=== PATIENT | female | born 1980 | race Caucasian/White ===

== ENCOUNTER → 2019-07-06 13:09 | Outpatient (CLI) | payer MEDICAID, SELFPAY ==
[2019-02-16 15:47] VITALS: BMI 24.6
== END ==
PROVIDERS: PCP Nurse Practitioner Family
DX: R68.89 Other general symptoms and signs (principal); R09.89 Other specified symptoms and signs involving the circulatory and respiratory systems
CPT/HCPCS: 87635; 87804; 94799; C9803; G2023; U0004

== ENCOUNTER 2020-03-24 17:35 | Emergency (ER) | payer MEDICAID, SELFPAY ==
[2019-02-16 15:47] VITALS: BMI 24.6
[2020-03-24 17:36] VITALS: BP 150/75; PULSE 93; RESP 15; TEMP 36.5; O2SAT 100; BMI 24.0
[2020-03-24] MEDS: Acetaminophen 500 MG Tablet 1000 MG PO (18:21)
[2020-03-24 18:24] LABS: Mucous, Urine 0 SEEN /hpf (<or=2+)
[2020-03-24 18:28] LABS: Color, Urine Yellow (Yellow); Glucose, Dipstick Normal (Normal); Ketone-Dipstick 5 mg/dl (Negative); Leukocyte Esterase-Dipstick 100 /ul (Negative); Nitrite-Dipstick Positive (Negative); Occult Blood-Urine 50 /ul (Negative); Protein-Dipstick 15 mg/dl (Negative); Specific Gravity, Urine 1.025 (1.002-1.030); Urine Bilirubin Dipstick Negative (Negative); Urine Clarity Cloudy (Clear); Urine Urobilinogen Normal (Normal)
[2020-03-24 18:29] LABS: Internal QC Validated? YES +Cl - CLEAR BKGD
[2020-03-24 18:30] LABS: Pregnancy, Urine Negative Negative
[2020-03-24 18:36] LABS: Amorphous Sediment 1+ URATE; Bacteria 3+ /hpf (None Seen); Red Blood Cells-Urine 0-5 SEEN /hpf (0-5); Squamous Epithelial Cells - UA 0-5 SEEN /hpf (5-10); White Blood Cells 5-10 SEEN /hpf (0-5)
--- NOTE | 2020-03-24 19:14 | ED.DCSUM_ITS ---
- ER Visit Summary Date of Service: 03/24/20 Chief Complaint: Fever History of Present Illness: The patient is a 39 F who sees Yadiel Machado. She reports that she has a fever that began 2 days ago. Is been as high as 101.3 degrees. She said chills cold sweats, myalgias. She reports that she does have mild shortness of breath. She denies cough. She has a sore throat and 6 out of 10 severity. Patient also complains of dysuria and frequency this been present for the past 4 days. She reports a headache that is 8 out of 10 severity. Is a sharp frontal pain she has a history of similar headaches. Patient reports that she has had exposure to 3 different cases of Covid at work. She denies any change in her sense of smell or taste. Physical Examination: Vitals: Stable. Afebrile. General: Well-nourished and well-developed. Head: Normocephalic atraumatic. Neck: Supple, no lymphadenopathy. No JVD. Nontender. Cardiovascular: Regular rate and rhythm. No murmurs. Respiratory: No respiratory distress. Clear to auscultation bilaterally. Abdominal: Soft, nontender, nondistended, normal bowel sounds. No guarding, rebound, or peritoneal signs. Back: Nontender. Extremities: Nontender, no edema. Skin: Normal color, no rash. Neurologic: Alert and oriented ?3. Cranial nerves II through XII are intact. Normal strength and sensation. Psych: Normal affect. Test Results: COVID-19 rapid antigen is negative. Urinalysis shows leukocytes, nitrites, 5-10 white blood cells, 3+ bacteria. test was negative. Emergency Department Course and Treatment: Patient was treated with Tylenol and Cipro p.o. She is resting comfortably. Treatment Plan: I do not think the patient's urine is the source of her fever. She will be discharged with Cipro. However, given her exposure to Covid I suspect this false negative test and the patient needs to quarantine while she is still ill. Follow-up with her primary care physician in 10 to 14 days if not improving. Return to the emergency department for any worsening symptoms. Disposition: To home in improved and stable condition. Impression: 1. UTI. 2. Fever. 3. COVID-19 exposure. This note was generated with [employer] software. It may contain incorrect words, spelling, and punctuation that were not noted in review of the chart prior to signing ED Disposition - Plan for ED Patient: Instructions: ED Bladder Infection, Female (Adult) Prescriptions: Ciprofloxacin [Cipro] 500 mg PO BID #14 tablet Referrals: Jesus Bell MACHINE S[employer]K SCREEN PRINTER, MACHINE [employer] SCREEN PRINTER-[facility] [Primary Care Provider] - 10-14 Days if not better
[2020-03-24] MEDS: Ciprofloxacin 500 MG Tablet PO (19:25)
== END 2020-03-24 19:33 | disposition home or self-care (01) ==
LOC: ED 18:38
PROVIDERS: Emergency Provider Emergency Medicine; PCP Nurse Practitioner Family
DX: N39.0 Urinary tract infection, site not specified (principal); J02.9 Acute pharyngitis, unspecified; R06.00 Dyspnea, unspecified; Z20.822 Contact with and (suspected) exposure to COVID-19; E03.9 Hypothyroidism, unspecified; F32.9 Major depressive disorder, single episode, unspecified; F41.9 Anxiety disorder, unspecified; Z79.899 Other long term (current) drug therapy; F17.200 Nicotine dependence, unspecified, uncomplicated
CPT/HCPCS: 81001; 81025; 87426; 99284

== ENCOUNTER 2020-10-27 21:20 | Emergency (ER) | payer MEDICAID, SELFPAY ==
[2020-10-27 21:21] VITALS: BP 127/50; PULSE 96; RESP 18; TEMP 36.4; O2SAT 97; BMI 26.6
--- NOTE | 2020-10-27 22:40 | EX.ED.VIS.HA ---
HPI History of Present Illness Chief Complaint: Headache Narrative Narrative: 39-year-old female presenting with headache. She states he has a history of migraine headaches. This does feel similar. Patient states that she was in the ER a few days ago and states that she was treated for a sinusitis/URI. She is put on steroids. She states her head was not bothering her at this point. Now she believes she developed a migraine. She has no nasal drainage. She has no fever or chills. No cough, body aches, change in taste or smell. [facility] Medical History Alcohol abuse Drug abuse Heart murmur Hyperthyroidism Migraines Home Medications buspirone 10 mg tablet 10 mg PO BID 02/16/19 [History Last Taken Unknown] clonazepam 1 mg tablet 1 mg PO BID 02/16/19 [History Last Taken Unknown] desvenlafaxine succinate 50 mg tablet,extended release 24 hr 50 mg PO DAILY 02/16/19 [History Last Taken Unknown] naltrexone 50 mg tablet 50 mg PO BID tab 02/16/19 [History Last Taken Unknown] ciprofloxacin HCl 500 mg PO BID #14 tab 03/24/20 [Rx Last Taken Unknown] Allergy/AdvReac Type Severity Reaction Status Date / Time doxycycline Allergy Vomiting Verified 10/27/20 21:23 risperidone AdvReac Intermediate dizziness, Verified 10/27/20 21:23 sedated prochlorperazine AdvReac Other Verified 10/27/20 23:35 [From Compazine] Family History Father , lung and liver cancer Alcoholism Cancer Drug abuse Mother Alcoholism Drug addiction Grandmother Diabetes Heart failure CVA (cerebral vascular accident) Arthritis Surgical History History of history of nose reconstruction History of tonsillectomy History of tubal ligation Social History Smoking Status: Current every day smoker tobacco type: cigarettes alcohol intake: former substance use type: former substance user ROS ROS ED Constitutional Constitutional ED: Denies chills, fever(s) or sweats Eyes Eyes: Reports other Details: Photophobia and phonophobia ; Denies blurry vision or diplopia ENT ENT ED: Denies ear pain or rhinorrhea Cardiovascular Cardiovascular: Denies chest pain or palpitations Respiratory/Chest Respiratory/Chest: Denies cough, dyspnea or sputum Gastrointestinal Gastrointestinal: Reports nausea; Denies abdominal pain or vomiting Genitourinary Genitourinary ED: Denies dysuria or hematuria Musculoskeletal Musculoskeletal: Denies arthralgias, back pain, myalgias or neck pain Integumentary Denies Abrasions or rash Neurologic Neurologic: Reports headache(s); Denies paresthesias EXAM Physical Exam Const Vital Signs: 10/27/20 21:21 10/27/20 23:53 Temperature 97.6 F L Temperature Source Temporal Pulse Rate 96 Respiratory Rate 18 16 Blood Pressure 127/50 H Blood Pressure Mean 75 Pulse Ox 97 Oxygen Delivery Method Room Air Positive well nourished General Appearance ED: NAD HEENT Reports normocephalic and moist mucous membranes atraumatic Eyes PERRL and EOMs intact bilaterally Resp normal respiratory effort and clear to auscultation bilaterally Cardio regular rate and regular rhythm Neuro oriented x3, CN's II-XII intact bilaterally and no sensory deficits noted Sensorium / Orientation: awake and alert Motor Exam: strength 5/5 throughout Psych mental status grossly normal Skin Lesions: no lesions Rashes: no rashes MDM MDM MDM Narrative Medical decision making narrative: Patient presenting for treatment of migraine headache. She is given Compazine, Benadryl, Toradol. I do not believe she needs imaging of her brain given her history of migraine. Patient reported symptoms of anxiety after getting treated. When I went to the room to evaluate her she had pulled out her IV and was gone. Impression: 1. Headache Discharge Plan Triage Chief Complaint: Headache ED Provider: Rafael Montoya Dx/Rx/DC Orders Instructions: ED Headache Unspecified Prescriptions: No Action desvenlafaxine succinate [Pristiq] 50 mg tablet extended release 24 hr 50 mg PO DAILY RF: 0 naltrexone 50 mg tablet 50 mg PO BID RF: 0 clonazepam [Klonopin] 1 mg tablet 1 mg PO BID RF: 0 buspirone 10 mg tablet 10 mg PO BID RF: 0 ciprofloxacin HCl 500 MG tablet 500 mg PO BID Qty: 14 RF: 0 Primary Care Provider: Jesus Bell NP Referrals: Jesus Bell INSTRUCTIONAL SYSTEMS SPECIALIST, INSTRUCTIONAL SYSTEMS SPECIALIST-C [Primary Care Provider] - Disposition Disposition: Elopement Discharge Date/Time: 10/28/20 00:17
[2020-10-27] MEDS: Ketorolac 15 MG/ML Vial IV (23:01)
[2020-10-27] MEDS: proCHLORPERazine 10 MG/2 ML Vial IV (23:01)
[2020-10-27] MEDS: DiphenhydrAMINE 50 MG/ML Syringe 25 MG IV (23:01)
[2020-10-27 23:53] VITALS: RESP 16
--- NOTE | 2020-10-27 23:53 | ED.RN ---
DR ZAIDI WENT IN TO RE-EVAL PT AND PT HAD LEFT. MIKE GALVIN HAD REMOVED PT IV PRIOR TO HER LEAVING.
== END 2020-10-28 00:17 | disposition left against medical advice (07) ==
LOC: ED 10-28 00:09
PROVIDERS: Emergency Provider Student in an Organized Health Care Education/Training Program; PCP Nurse Practitioner Family
DX: G43.909 Migraine, unspecified, not intractable, without status migrainosus (principal); E05.90 Thyrotoxicosis, unspecified without thyrotoxic crisis or storm; Z79.899 Other long term (current) drug therapy; F17.210 Nicotine dependence, cigarettes, uncomplicated
CPT/HCPCS: 96374; 96375; 99282; J7030; A4216